=== PATIENT | female | born 1970 | race Caucasian/White ===

== ENCOUNTER → 2021-02-08 | Outpatient (CLI) | payer OTHER | LOC: HEART 5 15:29 | DX: Z00.00 Encounter for general adult medical examination without abnormal findings (principal); K21.9 Gastro-esophageal reflux disease without esophagitis; R07.89 Other chest pain; R05 Cough; I51.89 Other ill-defined heart diseases; N20.0 Calculus of kidney; J44.9 Chronic obstructive pulmonary disease, unspecified; R94.2 Abnormal results of pulmonary function studies; Z87.891 Personal history of nicotine dependence | CPT/HCPCS: 94060; 94729 ==

== ENCOUNTER → 2021-07-14 | Outpatient (CLI) | payer OTHER | LOC: ECHO 12:40 | DX: R60.1 Generalized edema (principal); I07.1 Rheumatic tricuspid insufficiency | CPT/HCPCS: ECHO; 93306 ==

== ENCOUNTER → 2021-08-28 | Outpatient (CLI) | payer OTHER | LOC: HEART 5 08-08 11:30 | DX: R07.9 Chest pain, unspecified (principal) ==